=== PATIENT | female | born 1935 | race Caucasian/White ===

== ENCOUNTER 2020-04-26 15:21 | Emergency (ER) | payer MEDICARE, OTHER ==
[~2020-04-26] VITALS: Ht 160 cm; Wt 90.0 kg
[2020-04-26 15:21] VITALS: BP 140/62
--- NOTE | 2020-04-26 15:47 | PHYS DOC ---
Adult General Chief Complaint Chief Complaint: THUMB HPI HPI Patient is a 84-year-old female presents emergency department complaining of a infection of her left thumb. Patient states that 3 days ago she hit it against a cabinet and it lifted her nail up, she thus put her nail back down where it was supposed to be and covered it with a Band-Aid. Patient states that she noticed her nail was not in line at the very tip so she used some scissors to cut it straight. Patient states that she noticed this morning that her thumb was red and throbbing and swollen. Patient denies any drainage coming from her thumb, patient denies any loss of sensation or loss of feeling, patient states that throbs and it hurts at a 10/10 on a 1-10 pain scale when it is bumped up against something otherwise it it is a constant 5/10 on a 1-10 pain scale. Patient denies any other injuries or any other illnesses. Patient states that her last tetanus shot was longer than 5 years ago. Patient denies any allergies to medications, patient denies fever or chills, shortness of breath, chest pains, skin lesions, rashes of her skin. Patient denies any COVID-19 symptoms, does not wish to be tested for the COVID-19 virus today. Review of Systems Review of Systems 14 body systems of review of systems have been reviewed. See HPI for pertinent positives and negative responses, otherwise all other systems are negative, non pertinent or noncontributory. Current Medications Current Medications Patient reports taking Coumadin 5 mg daily, tramadol for chronic pains, Synthroid for thyroid problems. Allergies Allergies Patient denies allergies to medications. Physical Exam Physical Exam Constitutional: Well developed, well nourished, no acute distress, non-toxic appearance. Patient is hard of hearing HENT: Normocephalic, atraumatic, bilateral external ears normal, oropharynx moist, no oral exudates, nose normal. Eyes: PERRLA, EOMI, conjunctiva normal, no discharge. Neck: Normal range of motion, no tenderness, supple, no stridor. Cardiovascular:Heart rate regular rhythm, no murmur Lungs & Thorax: Bilateral breath sounds clear to auscultation Abdomen: Bowel sounds normal, soft, no tenderness, no masses, no pulsatile masses. Skin: Warm, dry, no erythema, no rash. Left thumb lateral paronychia without drainage, erythematous, painful to palpation, cap refill less than 2 seconds, full AROM/PROM of thumb MP and MIP joints, no signs of flexor tenosynovitis. Back: No tenderness, no CVA tenderness. Extremities: No tenderness, no cyanosis, no clubbing, ROM intact, no edema. Neurologic: Alert and oriented X 3, normal motor function, normal sensory function, no focal deficits noted. Psychologic: Affect normal, judgement normal, mood normal. EKG EKG [] Radiology/Procedures Radiology/Procedures STATUS: REG ER ORD. PHYSICIAN: DARIELA WADE APRN REASON: LEFT THUMB INFECTION AFTER BLUNT TRAUMA CONCERN FOR OSTEOMYLITIS PROCEDURE: HAND LEFT 3V 3 view study of the left hand Clinical indications: Left thumb infection after blunt trauma. Possible osteomyelitis. FINDINGS: No acute fracture or dislocation or lytic process is seen. Scaphoid bone is intact. IMPRESSION: No acute osseous abnormality. Diffuse soft tissue swelling of the right thumb is seen. No osteomyelitis is seen radiographically. No soft tissue air is seen. Electronically signed by: Minnie Abdalla MD (04/26/2020 4:16 PM) [id number] DICTATED AND SIGNED BY: MINNIE ABDALLA MD DATE: 04/26/201613 CC: DARIELA WADE APRN; MONET COOPER MD; EMERGENCY,DEPARTMENT ~MTH0 0 Heart Score Risk Factors: Risk Factors: DM, Current or recent (<one month) smoker, HTN, HLP, family history of CAD, obesity. Risk Scores: Risk Factors: DM, Current or recent (<one month) smoker, HTN, HLP, family history of CAD, obesity. Course & Med Decision Making Course & Med Decision Making Pertinent Labs and Imaging studies reviewed. (See chart for details) 84-year-old patient with an initial thumb injury 3 days ago presents emergency department with a paronychia of the left thumb, there is no drainage noted, physical appearance was erythematous in nature with swelling, no edema noted, cap refill was less than 2 seconds. And x-ray of the left hand attention left thumb was performed to rule out osteomyelitis and foreign body related to initial injury from 3 days ago, read by house radiologist interpretation as negative for acute process. Physical examination was consistent with an infectious paronychia, this is unlikely a felon, draining osteomyelitis, foreign body, onychomycosis, verrucae, herpetic triny, neoplasm, small cell carcinoma, or malignant melanoma. See I&D note. Patient was soaked in warm water with chlorhexidine soap for 15 minutes after I&D, I&D site was dressed with a Band-Aid. Approximately 2 cc of white purulent drainage was expressed from I&D site. Patient was given first dose of Keflex in the emergency department, her tetanus immunization was brought up-to-date. Patient gave verbal understanding of discharge home instructions, antibiotic use, daily soaks in warm soapy water twice daily, see her physician in 2 days, return to ER precautions, patient had no further questions or concerns, patient discharged home without incident. Dragon Disclaimer Dragon Disclaimer This electronic medical record was generated, in whole or in part, using a voice recognition dictation system. Departure Departure: Impression: Primary Impression: Paronychia of thumb, left Disposition: 01 DC HOME SELF CARE/HOMELESS Condition: IMPROVED Referrals: MONET COOPER MD (PCP) Patient Instructions: Paronychia Additional Instructions: I have given you your first dose of 1 antibiotic in the emergency department, I am discharging you with prescriptions for 2 separate antibiotics. Please take your antibiotics as directed until complete. I have given you a bottle of soap to take home with you I would like for you to add about a tablespoon to 1 gallon of warm water and soak your thumb twice a day for the next 5 days even if it is looking much better. You can put a Band-Aid over your thumb when not soaking, please return to the emergency department if you notice red streaking up your arm, your thumb becomes looking worse, or you have concerns about further infection. Otherwise I would like for you to see your primary care doctor on Monday or Monday for an evaluation of this incision and drainage wound and thumbnail infection. EMERGENCY DEPARTMENT GENERAL DISCHARGE INSTRUCTIONS Thank you for coming to [facility] ([facility]) today and trusting us with you care. We trust that you had a positivie experience in our Emergency Department. If you wish to speak to the department management, you may call the director at [phone]. YOUR FOLLOW UP INSTRUCTIONS ARE FOLLOWS: 1. Do you have a private Doctor? If you do not have a private doctor, please ask for a resource list of physicians or clinics that may be able to assist you with follow up care. 2. The Emergency Physician has interpreted your x-rays. The X-Ray specialist will also review them. If there is a change in the findings, you will be notified in 48 hours when at all possible. 3. A lab test or culture has been done, your results will be reviewed and you will be notified if you need a change in treatment. ADDITIONAL INSTRUCTIONS AND INFORMATION: 1. Your care today has been supervised by a physician who is specially trained in emergency care. Many problems require more than one evaluation for a complete diagnosis and treatment. We recommend that you schedule your follow up appointment as recommended to ensure complete treatment of you illness or injury. If you are unable to obtain follow up care and continue to have a problem, or if your condition worsens, we recommend that you return to the ED. 2. We are not able to safely determine your condition over the phone nor are we able to give sound medical advice over the phone. For these safety reasons, if you call for medical advice we will ask you to come to the ED for further evaluation. 3. If you have any questions regarding these discharge instructions please call the ED at [phone]. SAFETY INFORMATION: In the interest of safety, wellness, and injury prevention; we encourage you to wear your sealbelt, if you smoke; quite smoking, and we encourage family to use a protective helmet for bicycling and other sporting events that present an increased risk for head injury. IF YOUR SYMPTOMS WORSEN OR NEW SYMPTOMS DEVELOP, OR YOU HAVE CONCERNS ABOUT YOUR CONDITION; OR IF YOUR CONDITION WORSENS WHILE YOU ARE WAITING FOR YOUR FOLLOW UP APPOINTMENT; EITHER CONTACT YOUR PRIMARY CARE DOCTOR, THE PHYSICIAN WHOSE NAME AND NUMBER YOU WERE GIVEN, OR RETURN TO THE ED IMMEDIATELY. Scripts Cephalexin (KEFLEX) 500 Mg Capsule 500 MG PO QID for THUMBNAIL INFECTION for 7 Days, #28 CAP 0 Refills Prov: DARIELA WADE APRN 04/26/20 Sulfamethoxazole/Trimethoprim (BACTRIM DS TABLET) 1 Each Tablet 1 TAB PO BID for THUMB NAIL INFECTION for 7 Days, #14 TAB 0 Refills Prov: DARIELA WADE APRN 04/26/20 Incision and Drainage Indication: Infectious paronychia Procedure: The patient was positioned appropriately and the skin over the incision site was cleansed with chlorhexidine and prepped for I&D. Local anesthesia was accomplished with digital block using 2% lidocaine without epinephrine, 3 cc injected. An incision was then made over the dorsal lateral nail fold of the left thumb and 2 cc white purulent drainage material was expressed. Loculations were disrupted with curved forceps. The drainage cavity was then irrigated with 240 cc of pressurized normal saline. The patients tetanus status was brought up-to-date in the emergency department, the left thumb was then soaked in chlorhexidine warm water soapy solution for 15 minutes, then dried, then a Band-Aid was placed over the incision site. The patient tolerated the procedure well. Complications: [COMPLICATIONS:] No complications noted DARIELA WADE APRN Apr 26, 2020 15:47
[2020-04-26] MEDS ORDERED: DIPH,PERTUSS(ACELL),TET VAC/PF 0.5 ML SYRINGE. VAX IM ONE (16:15)
[2020-04-26] MEDS ORDERED: LIDOCAINE 2% 20 ML VIAL. IJ ONE (16:15)
--- NOTE | 2020-04-26 16:18 | RAD ---
3 view study of the left hand Clinical indications: Left thumb infection after blunt trauma. Possible osteomyelitis. FINDINGS: No acute fracture or dislocation or lytic process is seen. Scaphoid bone is intact. IMPRESSION: No acute osseous abnormality. Diffuse soft tissue swelling of the right thumb is seen. No osteomyelitis is seen radiographically. No soft tissue air is seen. Electronically signed by: Mio Abdalla MD (04/26/2020 4:16 PM) [id number]
[2020-04-26] MEDS ORDERED: CEPHALEXIN 250 MG CAPSULE PO ONE (16:45)
[2020-04-26] MEDS ORDERED: CEPH-264 PO (17:22)
[2020-04-26] MEDS ORDERED: SULF1TAB24 PO (17:22)
== END 2020-04-26 17:30 | disposition home or self-care (01) ==
LOC: ER 15:21
DX: L03.012 Cellulitis of left finger (principal)
CPT/HCPCS: 10060; 73130; 90471; 90715; 99283; J2001